=== PATIENT | male | born 1945 | race Caucasian/White ===

== ENCOUNTER → 2020-09-11 | Day surgery (SDC) | payer BC ==
[~2020-09-11] MED LIST: AMIO100T4 PO; ASPI-630 PO; ATOR40TA PO; FERR-36 PO; FINA5TAB4 PO; FURO20TA3 PO; IV RINGERS,LACTATED 1000ML 1,000 ML IV SCH; METO-239 PO; OMEP40CA45 PO; PROPOFOL 10 MG/ML (20ML) VIAL. IV ONE; SODIUM PHOSPHATES 19/7GM 133 ML ENEMA. ONE; SPIR25TA5 PO; TRAM50TA PO; WARF-31 PO
[2020-09-11 12:02] VITALS: BP 128/60
== END ==
LOC: SURG 09:30
PROVIDERS: ATTEND Internal Medicine Gastroenterology
DX: D50.9 Iron deficiency anemia, unspecified (principal); K63.5 Polyp of colon; K21.00 Gastro-esophageal reflux disease with esophagitis, without bleeding; K55.20 Angiodysplasia of colon without hemorrhage; K64.0 First degree hemorrhoids; Z79.82 Long term (current) use of aspirin; Z79.899 Other long term (current) drug therapy
CPT/HCPCS: 43239; 45382; J2704

== ENCOUNTER → 2021-02-20 | Outpatient (CLI) | payer BC ==
[2020-09-11 12:02] VITALS: BP 128/60
[~2021-02-20] MED LIST changes: -IV RINGERS,LACTATED 1000ML 1,000 ML IV SCH; -PROPOFOL 10 MG/ML (20ML) VIAL. IV ONE; -SODIUM PHOSPHATES 19/7GM 133 ML ENEMA. ONE
--- NOTE | 2021-02-20 17:17 | KCIC ---
EXAM: Chest, 2 views. HISTORY: Amiodarone therapy. COMPARISON: None. FINDINGS: 2 views of the chest are obtained. There is no infiltrate, pleural fusion or pneumothorax. The heart is normal in size. There is a cardiac pacemaker defibrillator in expected position. There i s slight eventration the right hemidiaphragm and interposition of loops of bowel superior to the live r, an incidental finding. IMPRESSION: No acute pulmonary finding. Electronically signed by: Omayra Castle MD (02/20/2021 5:14 PM) [id number]
== END ==
LOC: KCIC 13:16
PROVIDERS: ATTEND Internal Medicine Cardiovascular Disease
DX: Z79.899 Other long term (current) drug therapy (principal); Z95.0 Presence of cardiac pacemaker
CPT/HCPCS: 71046